=== PATIENT | female | born 1995 | race Caucasian/White ===

== ENCOUNTER 2017-03-25 16:31 | Emergency (ER) | payer OTHER ==
[~2017-03-25] VITALS: Ht 162.6 cm; Wt 72.7 kg
[2017-03-25 16:36] VITALS: Ht 162.6 cm; Wt 72.7 kg
[2017-03-25] MEDS ORDERED: SOD CHLORIDE 0.9% 1,000 ML IV STA (17:20)
[2017-03-25 17:49] LABS: ADD SCAN DIFF NO
[2017-03-25 17:51] LABS: BASOPHILS % 0.3 % (0.0-2.0); EOSINOPHILS % 0.2 % (0.0-7.0); HEMATOCRIT 33.6 % (37.0-47.0); HEMOGLOBIN 11.4 g/dl (12.0-16.0); LYMPHOCYTES # 1.9 10^3/ul (0.8-2.9); LYMPHOCYTES % 20.3 % (15.0-51.0); MEAN CORPUSCULAR HEMOGLOBIN 30.6 pg (29.0-33.0); MEAN CORPUSCULAR HGB CONC 33.9 g/dl (32.0-37.0); MEAN CORPUSCULAR VOLUME 90.3 fl (82.0-101.0); MONOCYTE # 0.7 10^3/ul (0.3-0.9); MONOCYTES % 7.1 % (0.0-11.0); NEUTROPHIL # 6.6 10^3/ul (1.6-7.5); NEUTROPHILS % 71.7 % (39.0-77.0); PLATELET COUNT 262 10^3/UL (140-415); RED BLOOD COUNT 3.72 10^6/ul (4.20-5.40); RED CELL DISTRIBUTION WIDTH 13.2 % (11.5-14.5); WHITE BLOOD COUNT 9.2 10^3/ul (4.8-10.8)
--- NOTE | 2017-03-25 18:02 | RADRPT ---
PROCEDURE: Obstetrical ultrasound. CLINICAL INDICATION: , evaluation. Pelvic pain. TECHNIQUE: Transabdominal sonographic images of the pelvis are obtained. COMPARISON: 03/22/2017 FINDINGS: Single intrauterine gestation. There is a cephalic presentation. Measurements were made in order to determine age. The results are as follows: BPD = 8.58 cm HC = 30.64 cm AC = 34.81 cm FL = 6.95 cm Heart rate = 140 beats per minute The placenta is posterior. No evidence of placental abruption. Lower margin of the placenta is not visualized. Ovaries are not visualized. IMPRESSION: Single intrauterine gestation of approximately 36 weeks 6 days by ultrasound criteria. Hadlock estimated weight = 3085 g Lower margin of the placenta and its relationship to the cervix are not well visualized. RPTAT: AADD .Keo Guerrero MD, MD Date Time Electronically viewed and signed by .Keo Guerrero MD, on 03/25/2017 18:01 .B/
[2017-03-25 18:10] LABS: ALANINE AMINOTRANSFERASE 35 IU/L (13-69); ALBUMIN 3.3 g/dl (3.3-4.9); ALBUMIN/GLOBULIN RATIO 0.97; ALKALINE PHOSPHATASE 199 IU/L (42-121); ANION GAP 12 (8-16); ASPARTATE AMINO TRANSFERASE 24 IU/L (15-46); BILIRUBIN,INDIRECT 0.5 mg/dl (0-1.1); BILIRUBIN,TOTAL 0.5 mg/dl (0.2-1.3); BLOOD UREA NITROGEN 6 mg/dl (7-20); CARBON DIOXIDE 22 mmol/L (21-31); CHLORIDE 107 mmol/L (97-110); CREATININE 0.61 mg/dl (0.44-1.00); GLUCOSE 75 mg/dl (70-220); POTASSIUM 4.1 mmol/L (3.5-5.1); SODIUM 137 mmol/L (135-144); TOTAL PROTEIN 6.7 g/dl (6.1-8.1)
--- NOTE | 2017-03-25 18:13 | RADRPT ---
PROCEDURE: US OB. CLINICAL INDICATION: Pain TECHNIQUE: Pelvic ultrasound performed for biophysical profile. COMPARISON: Ultrasound from the same day FINDINGS: Single intrauterine gestation present with heart rate at 139 beats per minute. Presentation is ceph alic. Placenta is posterior grade II. Biophysical profile score is 8/8 (breathing=2, movement=2, t one =2, fluid volume=2). Amniotic fluid volume is within normal limits, with CAROLEE = 12.5 cm. IMPRESSION: Live intrauterine gestation in cephalic presentation. Biophysical profile score 8/8. CAROLEE 12.5 cm .Filiberto Cam MD, Date Time Electronically viewed and signed by .Filiberto Cam MD, MD on 03/25/2017 18:13 .M/
[2017-03-25 18:28] LABS: ACETAMINOPHEN < 10.0 ug/ml (10.0-30.0); ETHANOL < 10.0 mg/dl; SALICYLATE < 1.0 mg/dl (5.0-30.0)
--- NOTE | 2017-03-25 20:23 | PSY ---
Date/Time of Note Date/Time of Note DATE: 03/25/17 TIME: 23:16 Psychiatric Subjective Eval Consent Pt consented to telemedicine: Yes Subjective Evaluation Patient location: emergency Chief Complaint: PT STATES OH "PUT SOMETHING IN HER", C/O AB PAIN, STATES SHE "WANTS TO " History of present illness The patient is a 22 yo female, 8 months , with a history of bipolar disorder, who has been off meds since the beginning of her . She originally presenting indicating that AH told her they had put something inside of her, was very concerned about the health of her fetus (by report [facility] fetus is healthy), and also stated she wanted to . MD spoke with pt. She was overtly odd, looking around, disorganized, seemed confused but fully alert and oriented. Seemed internally preoccupied. Denies SI and AH to this MD but reported them previously to nursing staff. Reported depression. Very vague about details. She denies drug use. Past Psych Hx: denies ho psych admits, reports a + ho bipolar do Meds: none now but was on risperidone, zoloft, and VPA PMHx: asthma All: denies MSE: casually groomed, odd, seems internally preoccupied and stimulated, flat affect, vague and disorganized, appears to have delusions along with AH about something putting things inside of her, denies si/hi right now Family History as above Allergies: Coded Allergies: No Known Allergy (Unverified , 03/25/17) Psychiatric Objective Eval Mental Status Examination: Laboratory Results Laboratory Tests Test 03/25/17 17:40 White Blood Count 9.210^3/ul Red Blood Count 3.7210^6/ul Hemoglobin 11.4g/dl Hematocrit 33.6% Mean Corpuscular Volume 90.3fl Mean Corpuscular Hemoglobin 30.6pg Mean Corpuscular Hemoglobin Concent 33.9g/dl Red Cell Distribution Width 13.2% Platelet Count 57334^3/UL Mean Platelet Volume 10.0fl Neutrophils % 71.7% Lymphocytes % 20.3% Monocytes % 7.1% Eosinophils % 0.2% Basophils % 0.3% Nucleated Red Blood Cells % 0.0/100WBC Neutrophils # 6.610^3/ul Lymphocytes # 1.910^3/ul Monocytes # 0.710^3/ul Eosinophils # 0.010^3/ul Basophils # 0.010^3/ul Nucleated Red Blood Cells # 0.010^3/ul Sodium Level 137mmol/L Potassium Level 4.1mmol/L Chloride Level 107mmol/L Carbon Dioxide Level 22mmol/L Anion Gap 12 Blood Urea Nitrogen 6mg/dl Creatinine 0.61mg/dl Glucose Level 75mg/dl Calcium Level 9.0mg/dl Total Bilirubin 0.5mg/dl Direct Bilirubin 0.00mg/dl Indirect Bilirubin 0.5mg/dl Aspartate Amino Transf (AST/SGOT) 24IU/L Alanine Aminotransferase (ALT/SGPT) 35IU/L Alkaline Phosphatase 199IU/L Total Protein 6.7g/dl Albumin 3.3g/dl Globulin 3.40g/dl Albumin/Globulin Ratio 0.97 Salicylates Level < 1.0mg/dl Acetaminophen Level < 10.0ug/ml Ethyl Alcohol Level < 10.0mg/dl Assessment and Plan Assessment/Diagnosis [place] I: bipolar do nos, depressed and psychotic Recommendation/Plan Medication Management The patient is a 22 yo female with bipolar do, 8 months , with depression, SI, and psychosis in context of not taking meds. At this time the patient is in good behavioral control. For now defer meds to inpatient treatment team and consult with OB and outpatient psychiatrist given 8 months and meds could be harmful to fetus so will have to carefully weigh risks and benefits. Pt requires psych admission. She may sign herself in. 5150 Recommendation: Continue Hold PEPE ZEPEDA March 25, 2017 20:22
--- NOTE | 2017-03-25 21:32 | ERA ---
ER Documentation Chief Complaint Date/Time DATE: 03/25/17 TIME: 21:20 Chief Complaint PT STATES OH "PUT SOMETHING IN HER", C/O AB PAIN, STATES SHE "WANTS TO " HPI This is a 22-year-old female who is of uncertain dates. The patient says she has no idea how far along she is. The patient says that she has bipolar disorder and depression and that she should be taking medication but she is not. She says that she is having off-and-on pain but cannot describe what the pain is like and the frequency and duration. She is not very cooperative. The patient is tangential with her responses. The patient stated that she wanted to and did not care if the baby . She said that she should just go ahead and get an at this point. She says she is not having any hallucinations. Says she feels a bit paranoid. She will not elicit if she has a plan. Then during the same conversation she says she is not suicidal ROS All systems reviewed and are negative except as per history of present illness. Medications Home Meds No Active Prescriptions or Reported Meds Allergies Allergies: Coded Allergies: No Known Allergy (Unverified , 03/25/17) PMhx/Soc Medical and Surgical Hx: pt denies Surgical Hx History of Surgery: No Anesthesia Reaction: No Hx Neurological Disorder: No Hx Cardiac Disorders: No Hx Psychiatric Problems: No Hx Miscellaneous Medical Probl: No Hx Alcohol Use: No Hx Substance Use: No Hx Tobacco Use: No Smoking Status: Unknown if ever smoked FmHx Family History: No coronary disease Physical Exam Vitals Vital Signs Date Time Temp Pulse Resp B/P Pulse Ox O2 Delivery O2 Flow Rate FiO2 03/25/17 18:30 98.3 83 17 119/72 100 Room Air 03/25/17 16:36 98.5 88 17 110/66 99 Physical Exam Const: Well-developed, well-nourished Head: Atraumatic, normocephalic Eyes: Normal Conjunctiva, PERRLA, EOMI, normal sclera, no nystagmus ENT: Normal External Ears, Nose and Mouth, moist mucus membranes. Neck: Full range of motion. No meningismus, no lymphadenopathy. Resp: Clear to auscultation bilaterally, no wheezing, rhonchi, rales Cardio: Regular rate and rhythm, no murmurs, S1 S2 present Abd: Soft, non tender x 4,, gravid,. Normal bowel sounds, no guarding or rebound, no pulsitile abdominal masses or bruits Skin: No petechiae or rashes, no ecchymosis , no maculopapular rash Back: No midline or flank tenderness Ext: No cyanosis, or edema, FROM x 4, normal inspection, neurovascularly intact x 4 Neur: Awake and alert, STR 5/5 x 4, sensation intact x 4, no focal findings, cerebellum intact Psych: Flat, tangential, psychotic Result Diagram: 03/25/17 17403/25/17 1740 Results 24 hrs Laboratory Tests Test 03/25/17 17:40 White Blood Count 9.210^3/ul Red Blood Count 3.7210^6/ul Hemoglobin 11.4g/dl Hematocrit 33.6% Mean Corpuscular Volume 90.3fl Mean Corpuscular Hemoglobin 30.6pg Mean Corpuscular Hemoglobin Concent 33.9g/dl Red Cell Distribution Width 13.2% Platelet Count 17055^3/UL Mean Platelet Volume 10.0fl Neutrophils % 71.7% Lymphocytes % 20.3% Monocytes % 7.1% Eosinophils % 0.2% Basophils % 0.3% Nucleated Red Blood Cells % 0.0/100WBC Neutrophils # 6.610^3/ul Lymphocytes # 1.910^3/ul Monocytes # 0.710^3/ul Eosinophils # 0.010^3/ul Basophils # 0.010^3/ul Nucleated Red Blood Cells # 0.010^3/ul Sodium Level 137mmol/L Potassium Level 4.1mmol/L Chloride Level 107mmol/L Carbon Dioxide Level 22mmol/L Anion Gap 12 Blood Urea Nitrogen 6mg/dl Creatinine 0.61mg/dl Glucose Level 75mg/dl Calcium Level 9.0mg/dl Total Bilirubin 0.5mg/dl Direct Bilirubin 0.00mg/dl Indirect Bilirubin 0.5mg/dl Aspartate Amino Transf (AST/SGOT) 24IU/L Alanine Aminotransferase (ALT/SGPT) 35IU/L Alkaline Phosphatase 199IU/L Total Protein 6.7g/dl Albumin 3.3g/dl Globulin 3.40g/dl Albumin/Globulin Ratio 0.97 Salicylates Level < 1.0mg/dl Acetaminophen Level < 10.0ug/ml Ethyl Alcohol Level < 10.0mg/dl Current Medications Medications (Trade) Dose Ordered Sig/Sharon Route PRN Reason Start Time Stop Time Status Last Admin Dose Admin Sodium Chloride (NS) 1,000 ml @ 1,000 mls/hr Q1H STAT IV 03/25/17 17:20 03/25/17 18:19 DC 03/25/17 17:42 Procedures/MDM PROCEDURE: US OB. CLINICAL INDICATION: Pain TECHNIQUE: Pelvic ultrasound performed for biophysical profile. COMPARISON: Ultrasound from the same day FINDINGS: Single intrauterine gestation present with heart rate at 139 beats per minute. Presentation is cephalic. Placenta is posterior grade II. Biophysical profile score is 8/8 (breathing=2, movement=2, tone =2, fluid volume=2). Amniotic fluid volume is within normal limits, with CAROLEE = 12.5 cm. IMPRESSION: Live intrauterine gestation in cephalic presentation. Biophysical profile score 8/8. CAROLEE 12.5 cm .Filiberto Cam MD, Date Time Electronically viewed and signed by .Filiberto Cam MD, MD on 03/25/2017 18:13 .M/ CC: NINA LOPEZ DO PROCEDURE: Obstetrical ultrasound. CLINICAL INDICATION: , evaluation. Pelvic pain. TECHNIQUE: Transabdominal sonographic images of the pelvis are obtained. COMPARISON: 03/22/2017 FINDINGS: Single intrauterine gestation. There is a cephalic presentation. Measurements were made in order to determine age. The results are as follows: BPD = 8.58 cm HC = 30.64 cm AC = 34.81 cm FL = 6.95 cm Heart rate = 140 beats per minute The placenta is posterior. No evidence of placental abruption. Lower margin of the placenta is not visualized. Ovaries are not visualized. IMPRESSION: Single intrauterine gestation of approximately 36 weeks 6 days by ultrasound criteria. Hadlock estimated weight = 3085 g Lower margin of the placenta and its relationship to the cervix are not well visualized. RPTAT: AADD .Keo Guerrero MD, Date Time Electronically viewed and signed by .Keo Guerrero MD, on 03/25/2017 18:01 .B/ CC: NINA LOPEZ DO Patient refused to give a urine sample, do not have drug screen back OB is come to evaluate the patient with toco and all is clear Psych team is coming to evaluate. Telemetry psychiatrist recommends psych admission The patient may need to be admitted to this hospital tomorrow morning if there are no places for placement Departure Diagnosis: Primary Impression: Psychosis Qualified Code: F29 - Psychosis, unspecified psychosis type Additional Impression: Qualified Code: Z3A.36 - 36 weeks gestation of Condition: Stable NINA LOPEZ DO March 25, 2017 21:32
[2017-03-25 23:32] LABS: ADD UMIC NO; URINE BILIRUBIN (Dip) NEGATIVE (NEGATIVE); URINE BLOOD (Dip) NEGATIVE (NEGATIVE); URINE COLOR LT. YELLOW (YELLOW); URINE GLUCOSE (Dip) NEGATIVE (NEGATIVE); URINE KETONES (Dip) 15 (NEGATIVE); URINE LEUKOCYTE ESTERASE (Dip) NEGATIVE (NEGATIVE); URINE NITRITE (Dip) NEGATIVE (NEGATIVE); URINE TOTAL PROTEIN (Dip) NEGATIVE (NEGATIVE); URINE UROBILINOGEN (Dip) 1.0 E.U./dL (0.1-1.0)
[2017-03-25 23:50] LABS: CANNABINOIDS Negative (NEGATIVE)
[2017-03-25 23:53] LABS: BARBITURATES Negative (NEGATIVE); BENZODIAZEPINES Negative (NEGATIVE); COCAINE Negative (NEGATIVE); OPIATES Negative (NEGATIVE)
--- NOTE | 2017-03-26 10:05 | PSY ---
Date/Time of Note Date/Time of Note DATE: 03/26/17 TIME: 12:58 Psychiatric Subjective Eval Consent Pt consented to telemedicine: Yes Subjective Evaluation Patient location: emergency Chief Complaint: PT STATES OH "PUT SOMETHING IN HER", C/O AB PAIN, STATES SHE "WANTS TO " History of present illness This was a reconsult from yesterday, seen by this MD. This MD was reconsulted as pt reportedly saying she wants to go home. spoke with pt, she denied every endorsing any SI, any AH, any thoughts of people putting things in her body. Denies she reported anything. Reports she was only concerned about her fetus. When MD asked what difference between today and yesterday was she simply said she is fine and wants to go home, in impatient manner. WHen MD asked directly about sxs from yesterday pt began to berate and demean , tellling MD that MD is wasting her time, that MD does nto speak Arabic, that MD does nto understand what she is saying. She was never able to explain what changed between yesterday and today. She was irritable, angry, and proceeded to simply insult MD's Arabic language abilities and intellect. attempted to explain to patient the need to understand what happened yesterday before any decision coudl be made given the severeity of sxs. Pt was unwilling to consider this option and continued to insult MD. MD had to terminate interview. MSE: as above. In addition, pt has odd affect, appears internally preoccupied, irritable, paranoid Medical history Problems Medical Problems: (1) Status: Acute (2) Psychosis Status: Acute Allergies: Coded Allergies: No Known Allergy (Unverified , 03/25/17) Psychiatric Objective Eval Mental Status Examination: Laboratory Results Laboratory Tests Test 03/25/17 17:40 03/25/17 23:13 White Blood Count 9.210^3/ul Red Blood Count 3.7210^6/ul Hemoglobin 11.4g/dl Hematocrit 33.6% Mean Corpuscular Volume 90.3fl Mean Corpuscular Hemoglobin 30.6pg Mean Corpuscular Hemoglobin Concent 33.9g/dl Red Cell Distribution Width 13.2% Platelet Count 82060^3/UL Mean Platelet Volume 10.0fl Neutrophils % 71.7% Lymphocytes % 20.3% Monocytes % 7.1% Eosinophils % 0.2% Basophils % 0.3% Nucleated Red Blood Cells % 0.0/100WBC Neutrophils # 6.610^3/ul Lymphocytes # 1.910^3/ul Monocytes # 0.710^3/ul Eosinophils # 0.010^3/ul Basophils # 0.010^3/ul Nucleated Red Blood Cells # 0.010^3/ul Sodium Level 137mmol/L Potassium Level 4.1mmol/L Chloride Level 107mmol/L Carbon Dioxide Level 22mmol/L Anion Gap 12 Blood Urea Nitrogen 6mg/dl Creatinine 0.61mg/dl Glucose Level 75mg/dl Calcium Level 9.0mg/dl Total Bilirubin 0.5mg/dl Direct Bilirubin 0.00mg/dl Indirect Bilirubin 0.5mg/dl Aspartate Amino Transf (AST/SGOT) 24IU/L Alanine Aminotransferase (ALT/SGPT) 35IU/L Alkaline Phosphatase 199IU/L Total Protein 6.7g/dl Albumin 3.3g/dl Globulin 3.40g/dl Albumin/Globulin Ratio 0.97 Salicylates Level < 1.0mg/dl Acetaminophen Level < 10.0ug/ml Ethyl Alcohol Level < 10.0mg/dl Urine Color LT. YELLOW Urine Clarity CLEAR Urine pH 6.0 Urine Specific [place] 1.020 Urine Ketones 15 Urine Nitrite NEGATIVE Urine Bilirubin NEGATIVE Urine Urobilinogen 1.0 E.U./dL Urine Leukocyte Esterase NEGATIVE Urine Hemoglobin NEGATIVE Urine Glucose NEGATIVE% Urine Total Protein NEGATIVE Urine Opiates Screen Negative Urine Barbiturates Negative Urine Amphetamines Screen Negative Urine Benzodiazepines Screen Negative Urine Cocaine Screen Negative Urine Cannabinoids Negative Assessment and Plan Recommendation/Plan Medication Management Pls refer to yesterday's note. Pt remains severely ill, disinhibited, does not reliably explain her SI and thoughts of about fetus, nor her psychosis. While all of thse sxs are unlikely to have resolved in less than 24 hours, it is even worse and more concerning that she completely denies them and is belligerent with MD, which greater confirms her ill state.She remains at acute risk of harm to herselfl and others (fetus). Given the potential severity of situation, recommend continued 5150 and inpatient admission. 5150 Recommendation: Continue Hold PEPE ZEPEDA March 26, 2017 10:05
--- NOTE | 2017-03-26 13:08 | QN ---
Documentation Comment TIME:13:05 22y/o female with history of bipolar disease noncompliant with medications, depression, 36 weeks 6 day viable intrauterine by ultrasound presented to the ED with bizarre behavior. She was seen by telehealth psychiatry physician who recommended 5150 hold. Patient's been in the ED over 20 hours. She currently denies visual or auditory hallucinations, suicidality or homicidality. She is able to verbalize her safety plan. She was evaluated by PMRT, Leidy Baum. Patient does not meet criteria for 5150 for DTS and will be referred to a local mental health clinic. Cleared for discharge and outpatient follow-up. LISSA JIMENEZ MD March 26, 2017 13:08
[2017-03-26 14:10] VITALS: BP 112/82; PULSE 88; RESP 20; TEMP 98.5
== END 2017-03-26 13:31 | disposition home or self-care (01) ==
LOC: E/R 16:31
DX: O99.343 Other mental disorders complicating pregnancy, third trimester (principal); R40.2252 Coma scale, best verbal response, oriented, at arrival to emergency department; F29 Unspecified psychosis not due to a substance or known physiological condition; R10.9 Unspecified abdominal pain; R40.2142 Coma scale, eyes open, spontaneous, at arrival to emergency department; R40.2362 Coma scale, best motor response, obeys commands, at arrival to emergency department; Z3A.36 36 weeks gestation of pregnancy
CPT/HCPCS: 36415; 76815; 76818; 80053; 80306; 80307; 81003; 85025; J7030; Z7502

== ENCOUNTER 2018-09-24 15:09 | Emergency (ER) | END 2018-09-24 17:28 | disposition left against medical advice (07) ==